=== PATIENT | female | born 1970 | race Hispanic/Latino ===

== ENCOUNTER 2023-03-25 08:52 | Emergency (ER) | payer OTHER ==
[2023-03-25] MEDS ORDERED: fentaNYL 50 mcg/mL 1 mL Vial ONE ×2 (09:06→09:32)
[2023-03-25] MEDS ORDERED: Ondansetron PF 4 MG/2 ML Vial ONE (09:06)
[2023-03-25 09:17] LABS: #Basophils 0.1 thou/uL (0.0-0.2); #Lymphocytes 3.1 thou/uL (1.20-3.40); #Monocytes 0.4 thou/uL (0.11-0.59); %Basophils 0.7 % (0.0-1.0); %Eosinophils 0.5 % (0.0-10.0); %Lymphocytes 40.5 % (21.0-51.0); %Monocytes 4.6 % (0.0-10.0); %Neutrophils 53.6 % (42.0-75.0); Hematocrit 44.8 % (36.0-47.0); Hemoglobin 14.3 g/dL (12.0-16.0); Manual Diff?? NO; Mean Corpuscular HGB CONC 31.9 g/dL (32.0-36.0); Mean Corpuscular Hemoglobin 29.9 pg (27.0-31.0); Mean Corpuscular Volume 93.6 fl (78.0-98.0); Mean Platelet Volume 6.7 fL (7.4-10.4); Platelet Count 289 10x3/uL (130-400); Prothrombin Time 13.8 sec (12.0-14.7); RBC Distribution Width 12.8 % (11.5-14.5); Red Blood Cell (RBC) Count 4.79 mill/uL (4.20-5.40); White Blood Cell (WBC) Count 7.5 10x3/uL (4.8-10.8)
[2023-03-25 09:18] LABS: PTT 29.7 sec (22.9-36.1)
[2023-03-25 09:22] LABS: Carbon Dioxide 17 mmol/L (22-29); Chloride 107 mmol/L (98-107); Potassium 3.6 mmol/L (3.5-5.1); Sodium 136 mmol/L (136-145)
[2023-03-25 09:23] LABS: Albumin 3.8 g/dL (3.5-5.0); Calcium 9.1 mg/dL (7.6-10.4); Globulin 3.6 g/dL (2.4-3.5); Glucose 401 mg/dL (70-105); Protein, Total 7.4 g/dL (6.0-8.3)
[2023-03-25 09:27] LABS: Anion Gap 12 mmol/L (10-20)
[2023-03-25 09:28] LABS: ALT (SGPT) 36 U/L (8-55); AST (SGOT) 43 U/L (5-34); Alkaline Phosphatase 119 U/L (40-110); BUN (Urea Nitrogen) 13 mg/dL (9.8-20.1); Bilirubin, Total 0.5 mg/dL (0.2-1.2); Calc. Creatinine Clearance 0 mL/min (70-130); Estimated GFR 76
[2023-03-25] MEDS ORDERED: Sodium Chloride 0.9% 1,000 ML ONE (09:32)
[2023-03-25] MEDS ORDERED: Cyclobenzaprine 10 MG TAB ONE (09:51)
[2023-03-25] MEDS ORDERED: Ketorolac Tromethamine 30 MG/ML VIAL ONE (09:51)
[2023-03-25 10:13] LABS: Bilirubin Negative (Negative); Blood, Urine Negative (Negative); Clarity Clear (Clear); Glucose, Urine (Dipstick) 500 mg/dL (Negative); Ketone, Urine Negative (Negative); Leukocyte Negative (Negative); Nitrite Negative (Negative); Protein, Urine (Dipstick) Negative (Neg-Trace); Urobilinogen 0.2 mg/dL (Less than 2); pH, Urine 5.5 (5.0-9.0)
== END 2023-03-25 10:58 | disposition home or self-care (01) ==
LOC: NAV ERS 08:52
DX: S13.4XXA Sprain of ligaments of cervical spine, initial encounter (principal); S29.012A Strain of muscle and tendon of back wall of thorax, initial encounter; S00.03XA Contusion of scalp, initial encounter; E11.01 Type 2 diabetes mellitus with hyperosmolarity with coma; V43.52XA Car driver injured in collision with other type car in traffic accident, initial encounter
CPT/HCPCS: 36416; 70450; 71260; 72125; 74177; 80053; 81001; 83605; 83690; 85025; 85610; 85730; 96361; 96374; 96375; J1885; J2405; J3010; J7050